=== PATIENT | male | born 1970 | race Two or more races ===

== ENCOUNTER 2018-07-24 19:35 | Emergency (ER) | payer OTHER ==
[~2018-07-24] VITALS: Ht 170.2 cm; Wt 100.7 kg
[2018-07-24] MEDS ORDERED: EFFEXOR XR150 MG (19:37)
[2018-07-24] MEDS ORDERED: CLONAZEPAM0.5 MG (19:37)
== END 2018-07-24 23:19 | disposition home or self-care (01) ==
LOC: ER 19:35
DX: J45.998 Other asthma (principal)

== ENCOUNTER 2018-09-09 17:34 | Emergency (ER) | payer OTHER ==
[~2018-09-09] VITALS: Ht 170.2 cm; Wt 102.1 kg
[~2018-09-09 17:34] MED LIST: CLONAZEPAM0.5 MG; EFFEXOR XR150 MG
== END 2018-09-09 22:22 | disposition home or self-care (01) ==
LOC: ER 17:34
DX: N30.80 Other cystitis without hematuria (principal)

== ENCOUNTER 2020-08-01 20:08 | Emergency (ER) | payer OTHER ==
[~2020-08-01] VITALS: Ht 172.7 cm; Wt 80.3 kg
[2020-08-02] MEDS ORDERED: CLEOCIN HCL300 MG PO (00:08)
[2020-08-02] MEDS ORDERED: INTESTINEX680 M2 PO (00:08)
== END 2020-08-02 00:19 | disposition home or self-care (01) ==
LOC: ER 20:08
DX: L03.116 Cellulitis of left lower limb (principal); B95.62 Methicillin resistant Staphylococcus aureus infection as the cause of diseases classified elsewhere; Z20.822 Contact with and (suspected) exposure to COVID-19

== ENCOUNTER 2022-12-25 00:03 | Emergency (ER) | payer OTHER ==
[~2022-12-25] VITALS: Ht 175.3 cm; Wt 90.3 kg
[~2022-12-25 00:03] MED LIST changes: +CLEOCIN HCL300 MG PO; +INTESTINEX680 M2 PO
== END 2022-12-25 06:30 | disposition home or self-care (01) ==
LOC: ER 00:03
DX: R10.32 Left lower quadrant pain (principal); N20.2 Calculus of kidney with calculus of ureter; K42.9 Umbilical hernia without obstruction or gangrene; Z88.2 Allergy status to sulfonamides; Z88.8 Allergy status to other drugs, medicaments and biological substances

== ENCOUNTER 2023-04-12 14:22 | Inpatient (IN) | payer OTHER ==
[~2023-04-12] VITALS: Ht 175.3 cm; Wt 88.5 kg
[2023-04-12] MEDS ORDERED: BIKTARVY 50-201 EACH (14:35)
[2023-04-12 15:43] LABS: HEMATOCRIT 35.8 % (39.0-48.0); HEMOGLOBIN 11.7 g/dL (13-16.00); MEAN CELL VOLUME 85.4 fL (80.0-100.00); MEAN CORPUSCULAR HEMOGLOBIN 27.9 pg (27.00-32.0); MEAN CORPUSCULAR HGB CONC 32.7 g/dl (32.0-36.0); PLATELET COUNT 261 K/uL (150-450); RED CELL DISTRIBUTION WIDTH 13.6 % (11.5-14.5)
[2023-04-12 16:19] LABS: ALBUMIN 2.7 gm/dL (3.4-5.0); BILIRUBIN TOTAL 0.37 mg/dL (0.3-1.2); CALCIUM 8.7 mg/dL (8.5-10.1); CREATININE SERUM 1.39 mg/dL (0.70-1.30); GFR 53.87; GLOBULINA 4.7 G/DL (2.4-3.5); POTASSIUM 3.4 mEq/L (3.5-5.1); TOTAL PROTEIN 7.4 gm/dL (6.4-8.2)
[2023-04-12 17:00] LABS: PH,URINE 5.5 (5.0-8.0); URINE APPEARANCE Clear; URINE BILIRRUBIN Negative (NEGATIVE); URINE BLOOD Negative; URINE COLOR Yellow; URINE GLUCOSE Negative (NEGATIVE); URINE LEUKOCYTE Trace; URINE NITRATE Negative; URINE PROTEIN Trace (NEGATIVE)
[2023-04-12 17:03] LABS: URINE EPITHELIAL CELLS 2.7 uL (0.0-38.8); URINE RBC 2.4 uL (0.0-20.8); URINE WBC 2.9 uL (0.0-23.2)
[2023-04-12 17:08] LABS: URINE BACTERIA 3.7 uL (0.0-1933)
[2023-04-12 21:30] LABS: INR 1.14; PARTIAL THROMBOPLASTIN TIME 28.4 SECONDS (22.0-34.0); PROTHROMBIN TIME 11.9 SECONDS (9.0-11.5)
[2023-04-13 13:10] LABS: ob NEGATIVE (NEGATIVE)
[2023-04-14 12:13] LABS: CALCIUM 8.2 mg/dL (8.5-10.1); CHOL HDL RATIO 7.1 (0-5.0); CREATININE SERUM 1.14 mg/dL (0.70-1.30); GFR 67.72; POTASSIUM 4.06 mEq/L (3.5-5.1)
== END 2023-04-14 17:52 | disposition home or self-care (01) | DRG 977 ==
LOC: ER 14:22 → MEDI 21:04
PROVIDERS: General Practice; ADMIT Specialist; ATTEND Specialist
PROC: BW21YZZ Computerized Tomography (CT Scan) of Abdomen and Pelvis using Other Contrast (ICD-10-PCS; principal; 2023-04-12)
DX: K52.89 Other specified noninfective gastroenteritis and colitis (principal); B20 Human immunodeficiency virus [HIV] disease; R59.0 Localized enlarged lymph nodes; Z20.822 Contact with and (suspected) exposure to COVID-19